=== PATIENT | male | born 1990 | race African-American/Black ===

== ENCOUNTER 2017-06-01 14:21 | Emergency (ER) | payer MEDICAID, OTHER ==
[~2017-06-01] VITALS: Ht 172.7 cm; Wt 90.0 kg
[2017-06-01] MEDS ORDERED: BACITRACIN ZINC OINT UDPKT TOP ONE (15:00)
[2017-06-01] MEDS ORDERED: LIDOCAINE HCL 1% 20ML VIAL (Pyxis) INJ MC ONE (15:00)
[2017-06-01] MEDS ORDERED: MORPHINE SULFATE 10 MG/ML CPJ IM ONE (15:00)
[2017-06-01 15:43] VITALS: BP 143/80
[2017-06-01] MEDS ORDERED: KETOROLAC 30MG/ML VIAL ONE (15:51)
[2017-06-01] MEDS ORDERED: CEFAZOLIN 1000MG PREMIX 50 ML IV ONE (16:00)
== END 2017-06-01 17:28 | disposition home or self-care (01) ==
LOC: ER 14:51
DX: S61.412A Laceration without foreign body of left hand, initial encounter (principal); S61.217A Laceration without foreign body of left little finger without damage to nail, initial encounter; F17.200 Nicotine dependence, unspecified, uncomplicated; X99.1XXA Assault by knife, initial encounter; Y93.89 Activity, other specified; Y92.89 Other specified places as the place of occurrence of the external cause; Y99.8 Other external cause status
CPT/HCPCS: 12002; 73130; 96365; 96372; 99285; J0690; J1885; J2270; J3490

== ENCOUNTER 2018-11-13 10:14 | Emergency (ER) | payer OTHER ==
[~2018-11-13] VITALS: Ht 172.7 cm; Wt 108.0 kg
[2018-11-13 12:00] VITALS: BP 132/106
[2018-11-13] MEDS: IBUPROFEN 800MG TABLET PO ONE ×2 (12:00→12:04)
== END 2018-11-13 13:18 | disposition home or self-care (01) ==
LOC: ER 10:14
DX: S93.491A Sprain of other ligament of right ankle, initial encounter (principal); W50.2XXA Accidental twist by another person, initial encounter; Y93.89 Activity, other specified; Y92.89 Other specified places as the place of occurrence of the external cause; Y99.8 Other external cause status; Z98.890 Other specified postprocedural states
CPT/HCPCS: 73610; 99283

== ENCOUNTER 2020-09-07 03:22 | Emergency (ER) | payer OTHER ==
[~2020-09-07] VITALS: Ht 172.7 cm; Wt 109.0 kg
[2020-09-07 05:01] LABS: CLARITY URINE CLEAR (CLEAR); COLOR URINE YELLOW (YELLOW); KETONES URINE TRACE (NEGATIVE); LEUKOCYTE ESTERASE URINE NEGATIVE (NEGATIVE); NITRITE URINE NEGATIVE (NEGATIVE); OCCULT BLOOD URINE 1+ (NEGATIVE); PH URINE 5.5 (4.5-8.0); PROTEIN URINE NEGATIVE (NEGATIVE)
[2020-09-07 05:27] LABS: *AMPHETAMINES SCREEN URINE NEGATIVE (NEGATIVE); *BARBITURATES SCREEN URINE NEGATIVE (NEGATIVE); *BENZODIAZEPINES SCREEN URINE NEGATIVE (NEGATIVE); *COCAINE SCREEN URINE NEGATIVE (NEGATIVE); CANNABINOID URINE SCREEN PRESUMTIVE POSITIVE (NEGATIVE); METHADONE URINE SCREEN NEGATIVE (NEGATIVE); OPIATES URINE SCREEN NEGATIVE (NEGATIVE); PHENCYCLIDINE URINE SCREEN NEGATIVE (NEGATIVE)
[2020-09-07 06:30] VITALS: BP 135/87
== END 2020-09-07 07:32 | disposition home or self-care (01) ==
LOC: ER 03:22
DX: R10.9 Unspecified abdominal pain (principal)
CPT/HCPCS: 74176; 80305; 81003; 99284